=== PATIENT | female | born 1975 | race American Indian/Alaskan Native ===

== ENCOUNTER 2019-04-30 10:06 | Emergency (ER) | payer BC ==
[2019-04-30] MEDS ORDERED: DICYCLOMINE 20 MG TAB PO ONE (13:35)
[2019-04-30] MEDS ORDERED: SODIUM CHLORIDE 0.9% 1000 ML 1,000 ML IV ONE (13:35)
[2019-04-30] MEDS ORDERED: MORPHINE 2 MG/1 ML INJ IV ONE (13:35)
[2019-04-30] MEDS ORDERED: ONDANSETRON 4 MG/2 ML INJ IV ONE (13:35)
[2019-04-30] MEDS ORDERED: MECLIZINE 25 MG TAB PO ONE (14:13)
--- NOTE | 2019-04-30 14:14 | Emergency Department Report ---
ED Abdominal Pain HPI - General Chief Complaint: Dyspnea/Respdistress Stated Complaint: SOB/DIZZY/DIABETIC Time Seen by Provider: 04/30/19 13:29 Source: patient Mode of arrival: Ambulatory Limitations: No Limitations - History of Present Illness Initial Comments: This is a 43-year-old female nontoxic, well nourished in appearance, no acute signs of distress presents to the ED with c/o of dizziness, nausea and vomiting and abdominal pain 1 day. Patient stated that abdominal pain causes some shortness of breathe. Otherwise, denies any SOB. Patient describes vomiting as food content and yellow gastric acid. Patient describes abdominal pain as c ramping and aching with level of 8/10 diffuse. Patient denies chest pain, short of breath, fever, chills, headache, stiff neck, numbness or tingling. Patient denies any diarrhea or constipation. Patient denies any recent travels. Patient denies any allergies. PMH includes DM. MD Complaint: abdominal pain -: days(s) (1) Location: diffuse Radiation: none Migration to: no migration Severity: mild Severity scale (0 -10): 8 Quality: cramping, aching Consistency: constant Improves With: nothing Worsens With: nothing Associated Symptoms: nausea, vomiting. denies: diarrhea, fever, chills, consti pation, dysuria, hematemesis, hematochezia, melena, hematuria, anorexia, syncope - Related Data Home Medications Medication Instructions Recorded Confirmed Last Taken Levothyroxine [Synthroid] 125 mcg PO QAM 08/23/15 08/23/15 08/22/15 metFORMIN [Glucophage] 500 mg PO BID 08/23/15 08/23/15 08/23/15 Previous Rx's Medication Instructions Recorded Last Taken Type DOXYCYCLINE Hyclate [Vibramycin] 100 mg PO Q12HR #28 capsule 08/24/15 Unknown Rx Ketorolac [Toradol] 10 mg PO Q6H PRN #20 tablet 08/24/15 Unknown Rx Ondansetron [Zofran Odt] 4 mg PO QID PRN #20 tab.rapdis 08/24/15 Unknown Rx Meclizine [Antivert] 12.5 mg PO BID PRN #10 tablet 04/30/19 Unknown Rx Ondansetron [Zofran Odt] 4 mg PO Q8HR PRN #10 tab.rapdis 04/30/19 Unknown Rx Allergies Allergy/AdvReac Type Severity Reaction Status Date / Time No Known Allergies Allergy Unverified 05/29/13 16:22 ED Review of Systems ROS: Stated complaint: SOB/DIZZY/DIABETIC Other details as noted in HPI Constitutional: denies: chills, fever Eyes: denies: eye pain, eye discharge, vision change ENT: denies: ear pain, throat pain Respiratory: denies: cough, shortness of breath, wheezing Cardiovascular: denies: chest pain, palpitations Endocrine: no symptoms reported Gastrointestinal: abdominal pain, nausea, vomiting. denies: diarrhea Genitourinary: denies: urgency, dysuria, discharge Musculoskeletal: denies: back pain, joint swelling, arthralgia Skin: denies: rash, lesions Neurological: other (dizziness). denies: headache, weakness, paresthesias Psychiatric: denies: anxiety, depression Hematological/Lymphatic: denies: easy bleeding, easy bruising ED Past Medical Hx - Past Medical History Previous Medical History?: Yes Hx Diabetes: Yes (type II) Additional medical history: HYPERTHYROID. VITILIGO - Surgical History Past Surgical History?: Yes Hx Cholecystectomy: Yes Additional Surgical History: corneal transplant x 2 recent, csection x 2 tubal ligation - Social History Smoking Status: Never Smoker Substance Use Type: None - Medications Home Medications: Home Medications Medication Instructions Recorded Confirmed Last Taken Type Levothyroxine [Synthroid] 125 mcg PO QAM 08/23/15 08/23/15 08/22/15 History metFORMIN [Glucophage] 500 mg PO BID 08/23/15 08/23/15 08/23/15 History DOXYCYCLINE Hyclate [Vibramycin] 100 mg PO Q12HR #28 capsule 08/24/15 Unknown Rx Ketorolac [Toradol] 10 mg PO Q6H PRN #20 tablet 08/24/15 Unknown Rx Ondansetron [Zofran Odt] 4 mg PO QID PRN #20 tab.rapdis 08/24/15 Unknown Rx Meclizine [Antivert] 12.5 mg PO BID PRN #10 tablet 04/30/19 Unknown Rx Ondansetron [Zofran Odt] 4 mg PO Q8HR PRN #10 tab.rapdis 04/30/19 Unknown Rx ED Physical Exam - General Limitations: No Limitations General appearance: alert, in no apparent distress - Head Head exam: Present: atraumatic, normocephalic - Eye Eye exam: Present: normal appearance, PERRL, EOMI - ENT ENT exam: Present: normal exam - Neck Neck exam: Present: normal inspection, full ROM. Absent: tenderness, meningismus, lymphadenopathy - Respiratory Respiratory exam: Present: normal lung sounds bilaterally. Absent: respiratory distress, wheezes, rales, rhonchi, stridor, chest wall tenderness, accessory muscle use, decreased breath sounds, prolonged expiratory - Cardiovascular Cardiovascular Exam: Present: regular rate, normal rhythm, normal heart sounds. Absent: bradycardia, tachycardia, irregular rhythm, systolic murmur, diastolic murmur, rubs, gallop - GI/Abdominal GI/Abdominal exam: Present: soft, tenderness (diffuse), normal bowel sounds. Absent: distended, guarding, rebound, rigid, diminished bowel sounds - Extremities Exam Extremities exam: Present: normal inspection, full ROM - Back Exam Back exam: Present: normal inspection, full ROM. Absent: tenderness, CVA tender ness (R), CVA tenderness (L), muscle spasm, paraspinal tenderness, vertebral tenderness, rash noted - Neurological Exam Neurological exam: Present: alert, oriented X3, normal gait - Expanded Neurological Exam Expanded Patient oriented to: Present: person, place, time Cranial nerves: EOM's Intact: Normal, Facial Sensation: Normal Cerebellar function: Finger to Nose: Normal Upper motor neuron: Pronator Drift: Normal, Sensory Extinction: Normal Motor strength exam: RUE: 5, LUE: 5, RLE: 5, LLE: 5 Best Eye Response ([place]): (4) open spontaneously Best Motor Response ([place]): (6) obeys commands Best Verbal Response ([place]): (5) oriented [place] Total: 15 - Psychiatric Psychiatric exam: Present: normal affect, normal mood - Skin Skin exam: Present: warm, dry, intact, normal color. Absent: rash ED Course Vital Signs 04/30/19 04/30/19 04/30/19 10:11 14:17 14:47 Temperature Pulse Rate 89 Respiratory 16 18 18 Rate Blood Pressure 169/78 [Left] O2 Sat by Pulse 100 Oximetry 04/30/19 15:18 Temperature 97.5 F L Pulse Rate Respiratory Rate Blood Pressure [Left] O2 Sat by Pulse Oximetry - Reevaluation(s) Reevaluation #1: 04/30/19 14:13 Patient is speaking in full sentences with no signs of distress noted. ED Medical Decision Making - Lab Data Result diagrams: 04/30/19 14:05 04/30/19 14:05 - Medical Decision Making This is a 43-year-old female that presents with abdominal pain, n/v, and vertigo. Patient is stable and was examined by me. Negative signs of symptoms of appendicitis. Labs obtained. UA obtained. CT of abdomen obtained and dictated by the radiologist. Patient is notified of the report with no questions noted by the patient. Vital signs are stable prior to discharge. Patient received medical treatment in the ED which patient stated symptoms has resovled and subsided. Was instructed note to operate any machinery due to possible drowsiness and stated someone will drive the patient home. A by mouth challenge has been obtained and patient tolerated well with no nausea vomiting. Patient was notified of strict precatuions of appendictis symptoms and to return to the ED if symptoms occurs as soon as possible. Patient was also instructed to Fo llow-up with a primary care doctor in 3-5 days or if symptoms worsen and continue return to emergency room as soon as possible. At time of discharge, the patient does not seem toxic or ill in appearance. No acute signs of distress noted. Patient agrees to discharge treatment plan of care. No further questions noted by the patient. Critical care attestation.: If time is entered above; I have spent that time in minutes in the direct care of this critically ill patient, excluding procedure time. ED Disposition Clinical Impression: Vertigo Abdominal pain Qualifiers: Abdominal location: generalized Qualified Code(s): R10.84 - Generalized abdominal pain Nausea & vomiting Qualifiers: Vomiting type: unspecified Vomiting Intractability: non-intractable Qualified Code(s): R11.2 - Nausea with vomiting, unspecified Disposition: DC-01 TO HOME OR SELFCARE Is pt being admited?: No Does the pt Need Aspirin: No Condition: Stable Instructions: Vertigo (ED), Acute Abdominal Pain (ED), Acute Nausea and Vomiting (ED) Additional Instructions: Follow-up with a primary care doctor in 3-5 days or if symptoms worsen and continue return to emergency room as soon as possible. Prescriptions: Meclizine [Antivert] 12.5 mg PO BID PRN #10 tablet PRN Reason: Vertigo Ondansetron [Zofran Odt] 4 mg PO Q8HR PRN #10 tab.rapdis PRN Reason: Nausea Referrals: PRIMARY CAREMD [Primary Care Provider] - 3-5 Days MARYCHUY BURRIS MD [Staff Physician] - 3-5 Days [facility] [Outside] - 3-5 Days Forms: Work/School Release Form(ED)
[2019-04-30 14:52] LABS: Alanine Aminotransferase 10 units/L (7-56); Albumin 3.9 g/dL (3.9-5); BUN/Creatinine Ratio 7; Blood Urea Nitrogen 4 mg/dL (7-17); Calcium 8.8 mg/dL (8.4-10.2); Hemolysis Index 3
[2019-04-30 15:15] LABS: Hematocrit 26.9 % (30.3-42.9); Hemoglobin 7.9 gm/dl (10.1-14.3); Mean Corpuscular HGB Conc 30 % (30-34); Mean Corpuscular Volume 60 fl (79-97); Red Blood Count 4.49 M/mm3 (3.65-5.03)
[2019-04-30 15:16] LABS: Platelet Count 408 K/mm3 (140-440); Red Cell Distribution Width 20.3 % (13.2-15.2)
--- NOTE | 2019-04-30 16:30 | Cat Scan Report ---
CT abdomen pelvis w con INDICATION / CLINICAL INFORMATION: MAIN: abd pain N/V OMNIPAQUE 300 100ML NEG PREG TEST. Nausea and vomiting TECHNIQUE: Axial CT imaging of abdomen and pelvis was obtained with IV contrast. Coronal and sagittal reformatte d imaging obtained and reviewed. All CT scans at this location are performed using CT dose reduction for ALARA by means of automated exposure control. COMPARISON: 08/24/2015 FINDINGS: CT abdomen with contrast demonstrates mild hepatic steatosis. The liver is mildly enlarged. Spleen, p ancreas, kidneys, and adrenal glands all appear grossly unremarkable. Prior cholecystectomy. No bilia ry dilatation. CT pelvis with contrast demonstrates normal appearance of the appendix. No pelvic mass, free fluid, o r focal inflammatory change noted. GI tract is normal. Visualized lung bases show no acute pulmonary or pleural disease. No significant acute osseous abnormality. IMPRESSION: 1. No acute finding within the abdomen or pelvis. 2. Mild hepatomegaly due to mild hepatic steatosis. Signer Name: Camilla Bundy MD Signed: 04/30/2019 4:26 PM Workstation Name: [id number]
[2019-04-30 18:14] VITALS: BP 139/84
[2019-04-30 22:01] LABS: Basophils % (Manual) 0 % (0.0-1.8); Total Cells Counted 100
[2019-04-30 22:02] LABS: Hypochromasia 3+; Large Platelets 1+; Ovalocytes 2+
[2019-04-30 22:03] LABS: Platelet Estimate Consistent w Auto
== END 2019-04-30 18:14 | disposition home or self-care (01) ==
LOC: ED 10:06
DX: R10.84 Generalized abdominal pain (principal); R11.2 Nausea with vomiting, unspecified; R42 Dizziness and giddiness
CPT/HCPCS: 36415; 74177; 80053; 82962; 83690; 84703; 85007; 85025; 96361; 96374; 96375; 99284; J2270; J2405; J7030; Q9967

== ENCOUNTER 2020-04-22 20:06 | Emergency (ER) | payer BC ==
[2020-04-22 20:14] VITALS: BP 152/89
[2020-04-22] MEDS ORDERED: methylPREDNISolone Sod Succinate 125 MG/2 ML INJ IV ONE (20:24)
[2020-04-22] MEDS ORDERED: FAMOTIDINE 20 MG/2 ML INJ IV ONE (20:24)
[2020-04-22] MEDS ORDERED: ONDANSETRON 4 MG/2 ML INJ IV ONE (20:24)
[2020-04-22] MEDS ORDERED: diphenhydrAMINE 50 MG/ML VIAL IV ONE (20:24)
--- NOTE | 2020-04-22 20:28 | Emergency Department Report ---
ED Allergic Reaction HPI - General Chief complaint: Allergic Reaction Stated complaint: ALLERGIC REACTION Time Seen by Provider: 04/22/20 20:22 Source: patient Mode of arrival: Ambulatory Limitations: No Limitations - History of Present Illness Initial Comments: 44-year-old female, history of diabetes and thyroid disease, presents to ED with allergic reaction. Patient states she was given an ian candy about an hour ago and began experiencing swelling to her hands and lips. States throat feels itchy. She denies any difficulty breathing. She has not taken any medication prior to ED arrival. No history of allergic reaction in the past. MD Complaint: allergic reaction -: hour(s) (1) Exposure: food (ian candy) Symptoms: lip swelling, nausea. denies: difficulty breathing Severity: moderate Treatment Prior to Arrival: none - Related Data Home Medications Medication Instructions Recorded Confirmed Last Taken Levothyroxine [Synthroid] 125 mcg PO QAM 08/23/15 08/23/15 08/22/15 metFORMIN [Glucophage] 500 mg PO BID 08/23/15 08/23/15 08/23/15 Previous Rx's Medication Instructions Recorded Last Taken Type DOXYCYCLINE Hyclate [Vibramycin] 100 mg PO Q12HR #28 capsule 08/24/15 Unknown Rx Ketorolac [Toradol] 10 mg PO Q6H PRN #20 tablet 08/24/15 Unknown Rx Ondansetron [Zofran Odt] 4 mg PO QID PRN #20 tab.rapdis 08/24/15 Unknown Rx Meclizine [Antivert] 12.5 mg PO BID PRN #10 tablet 04/30/19 Unknown Rx Ondansetron [Zofran Odt] 4 mg PO Q8HR PRN #10 tab.rapdis 04/30/19 Unknown Rx predniSONE [Deltasone] 50 mg PO QDAY #5 tab 04/22/20 Unknown Rx Allergies Allergy/AdvReac Type Severity Reaction Status Date / Time No Known Allergies Allergy Unverified 05/29/13 16:22 ED Review of Systems ROS: Stated complaint: ALLERGIC REACTION Other details as noted in HPI Comment: All other systems reviewed and negative Respiratory: denies: shortness of breath Gastrointestinal: nausea Skin: denies: rash ED Past Medical Hx - Past Medical History Previous Medical History?: Yes Hx Diabetes: Yes (type II) Additional medical history: HYPoTHYROID. VITILIGO - Surgical History Past Surgical History?: Yes Hx Cholecystectomy: Yes Additional Surgical History: corneal transplant x 2 recent, csection x 2 tubal ligation - Social History Smoking Status: Never Smoker Substance Use Type: None - Medications Home Medications: Home Medications Medication Instructions Recorded Confirmed Last Taken Type Levothyroxine [Synthroid] 125 mcg PO QAM 08/23/15 08/23/15 08/22/15 History metFORMIN [Glucophage] 500 mg PO BID 08/23/15 08/23/15 08/23/15 History DOXYCYCLINE Hyclate [Vibramycin] 100 mg PO Q12HR #28 capsule 08/24/15 Unknown Rx Ketorolac [Toradol] 10 mg PO Q6H PRN #20 tablet 08/24/15 Unknown Rx Ondansetron [Zofran Odt] 4 mg PO QID PRN #20 tab.rapdis 08/24/15 Unknown Rx Meclizine [Antivert] 12.5 mg PO BID PRN #10 tablet 04/30/19 Unknown Rx Ondansetron [Zofran Odt] 4 mg PO Q8HR PRN #10 tab.rapdis 04/30/19 Unknown Rx predniSONE [Deltasone] 50 mg PO QDAY #5 tab 04/22/20 Unknown Rx ED Physical Exam - General Limitations: No Limitations General appearance: alert, in no apparent distress, obese - Head Head exam: Present: atraumatic, normocephalic - Eye Eye exam: Present: normal appearance, EOMI - ENT ENT exam: Present: normal orophraynx (Uvula midline, no edema; tongue is normal in size), other (slight swelling to upper lip) - Neck Neck exam: Present: normal inspection - Respiratory Respiratory exam: Present: normal lung sounds bilaterally. Absent: respiratory distress, wheezes, stridor - Cardiovascular Cardiovascular Exam: Present: normal rhythm, tachycardia - GI/Abdominal GI/Abdominal exam: Present: soft. Absent: distended, tenderness - Extremities Exam Extremities exam: Present: normal inspection - Neurological Exam Neurological exam: Present: alert, oriented X3 - Psychiatric Psychiatric exam: Present: normal affect, normal mood - Skin Skin exam: Present: warm, dry, intact, normal color. Absent: rash ED Course Vital Signs 04/22/20 04/22/20 20:11 22:35 Temperature 98.3 F Pulse Rate 119 H 89 Respiratory 18 17 Rate Blood Pressure 152/89 O2 Sat by Pulse 97 100 Oximetry - Reevaluation(s) Reevaluation #1: 04/22/20 22:20 Patient feeling much better at this time. Swelling has resolved. Patient is having no respiratory distress. Will discharge at this time. ED Medical Decision Making - Medical Decision Making 44-year-old female presents to ED for allergic reaction after eating a piece of ian candy. Patient denies any previous history of allergic reactions. Patient arrives with some swelling to the lips and hands, no airway compromise. She was given Benadryl, Pepcid, Solu-Medrol, and Zofran. Patient has been observed in the ED, symptoms have resolved, and she is now stable for discharge home. Prescriptions will be given. Outpatient follow-up advised, return precautions given. - Differential Diagnosis Allergic reaction Critical care attestation.: If time is entered above; I have spent that time in minutes in the direct care of this critically ill patient, excluding procedure time. ED Disposition Clinical Impression: Allergic reaction Disposition: - TO HOME OR SELFCARE Is pt being admited?: No Condition: Stable Instructions: Allergies, Adult Prescriptions: predniSONE [Deltasone] 50 mg PO QDAY #5 tab Referrals: PRIMARY CARE, [Primary Care Provider] - 3-5 Days [facility] [Provider Group] - 3-5 Days Time of Disposition: 22:21
== END 2020-04-22 22:35 | disposition home or self-care (01) ==
LOC: ED 20:06
DX: T78.40XA Allergy, unspecified, initial encounter (principal); E11.9 Type 2 diabetes mellitus without complications; Z90.49 Acquired absence of other specified parts of digestive tract; Z98.890 Other specified postprocedural states; Z79.899 Other long term (current) drug therapy; X58.XXXA Exposure to other specified factors, initial encounter
CPT/HCPCS: 96374; 96375; 99282; J1200; J2405; J2930

== ENCOUNTER 2020-12-21 17:43 | Emergency (ER) | payer BC ==
[2020-12-21 18:40] VITALS: BP 162/88
[2020-12-21 19:06] LABS: Bacteria,Urine 1+ /HPF (Negative); Bilirubin,Urine NEG (Negative); Blood,Urine SM (Negative); Color,Urine Yellow (Yellow); Mucus,Urine 1+ /HPF; Protein,Urine <15 mg/dL mg/dL (Negative); Urobilinogen,Urine < 2.0 mg/dL (<2.0)
[2020-12-21 19:07] LABS: HCG Qualitative,Urine Negative (Negative)
--- NOTE | 2020-12-21 19:23 | Emergency Department Report ---
ED Abdominal Pain HPI - General Chief Complaint: Abdominal Pain Stated Complaint: POSS RIB FRACTURE Time Seen by Provider: 12/21/20 19:19 Source: patient Mode of arrival: Ambulatory Limitations: No Limitations - History of Present Illness Initial Comments: Patient is a 45-year-old female presents emergency room complaints of right- sided abdominal pain that radiates to her back that began 3 days ago. The patient states that she had a cholecystectomy in 1999. She states that she has not had any issues since then. She denies any nausea, vomiting, diarrhea. She states that she had a bowel movement this morning and reports it was normal. She denies any dysuria. She denies any shortness of breath or chest pain. Past medical history of hypothyroidism and anemia. Allergy to ian. Severity scale (0 -10): 8 - Related Data Home Medications Medication Instructions Recorded Confirmed Last Taken Levothyroxine [Synthroid] 125 mcg PO QAM 08/23/15 08/23/15 08/22/15 metFORMIN [Glucophage] 500 mg PO BID 08/23/15 08/23/15 08/23/15 Previous Rx's Medication Instructions Recorded Last Taken Type DOXYCYCLINE Hyclate [Vibramycin] 100 mg PO Q12HR #28 capsule 08/24/15 Unknown Rx Ketorolac [Toradol] 10 mg PO Q6H PRN #20 tablet 08/24/15 Unknown Rx Ondansetron [Zofran Odt] 4 mg PO QID PRN #20 tab.rapdis 08/24/15 Unknown Rx Meclizine [Antivert] 12.5 mg PO BID PRN #10 tablet 04/30/19 Unknown Rx predniSONE [Deltasone] 50 mg PO QDAY #5 tab 04/22/20 Unknown Rx Ondansetron [Zofran ODT TAB] 4 mg PO Q8HR PRN #10 tab.rapdis 12/21/20 Unknown Rx cephALEXin [Keflex] 500 mg PO BID 7 Days #14 capsule 12/21/20 Unknown Rx traMADoL [Ultram 50 MG tab] 50 mg PO Q6HR PRN #12 tablet 12/21/20 Unknown Rx Allergies Allergy/AdvReac Type Severity Reaction Status Date / Time ian Allergy Swelling Verified 12/21/20 18:31 ED Review of Systems ROS: Stated complaint: POSS RIB FRACTURE Other details as noted in HPI Comment: All other systems reviewed and negative ED Past Medical Hx - Past Medical History Hx Diabetes: Yes (type II) Additional medical history: HYPoTHYROID/ LOW IRON. VITILIGO - Surgical History Hx Cholecystectomy: Yes Additional Surgical History: corneal transplant x 2 recent, csection x 2 tubal ligation - Social History Smoking Status: Never Smoker Substance Use Type: None - Medications Home Medications: Home Medications Medication Instructions Recorded Confirmed Last Taken Type Levothyroxine [Synthroid] 125 mcg PO QAM 08/23/15 08/23/15 08/22/15 History metFORMIN [Glucophage] 500 mg PO BID 08/23/15 08/23/15 08/23/15 History DOXYCYCLINE Hyclate [Vibramycin] 100 mg PO Q12HR #28 capsule 08/24/15 Unknown Rx Ketorolac [Toradol] 10 mg PO Q6H PRN #20 tablet 08/24/15 Unknown Rx Ondansetron [Zofran Odt] 4 mg PO QID PRN #20 tab.rapdis 08/24/15 Unknown Rx Meclizine [Antivert] 12.5 mg PO BID PRN #10 tablet 04/30/19 Unknown Rx predniSONE [Deltasone] 50 mg PO QDAY #5 tab 04/22/20 Unknown Rx Ondansetron [Zofran ODT TAB] 4 mg PO Q8HR PRN #10 tab.rapdis 12/21/20 Unknown Rx cephALEXin [Keflex] 500 mg PO BID 7 Days #14 capsule 12/21/20 Unknown Rx traMADoL [Ultram 50 MG tab] 50 mg PO Q6HR PRN #12 tablet 12/21/20 Unknown Rx ED Physical Exam - General Limitations: No Limitations General appearance: alert, in no apparent distress - Head Head exam: Present: atraumatic, normocephalic - Eye Eye exam: Present: normal appearance - ENT ENT exam: Present: mucous membranes moist - Respiratory Respiratory exam: Present: normal lung sounds bilaterally. Absent: respiratory distress, wheezes, rales, rhonchi, stridor, chest wall tenderness, accessory muscle use, decreased breath sounds, prolonged expiratory - Cardiovascular Cardiovascular Exam: Present: regular rate, normal rhythm, normal heart sounds. Absent: systolic murmur, diastolic murmur, rubs, gallop - GI/Abdominal GI/Abdominal exam: Present: soft, tenderness (generalized right sided abd ttp), normal bowel sounds, other (protuberant abdomen). Absent: guarding, rebound, rigid - Neurological Exam Neurological exam: Present: alert, oriented X3 - Psychiatric Psychiatric exam: Present: normal affect, normal mood - Skin Skin exam: Present: warm, dry, intact ED Course Vital Signs 12/21/20 12/21/20 18:37 18:40 Temperature 98.4 F 98.4 F Pulse Rate 82 82 Respiratory 20 20 Rate Blood Pressure 162/88 Blood Pressure 162/88 [Right] O2 Sat by Pulse 100 100 Oximetry ED Medical Decision Making - Lab Data Result diagrams: 12/21/20 18:56 12/21/20 18:56 Lab Results 12/21/20 12/21/20 12/21/20 Range/Units 18:56 18:56 Unknown WBC 9.9 (4.5-11.0) K/mm3 RBC 4.38 (3.65-5.03) M/mm3 Hgb 8.7 L (10.1-14.3) gm/dl Hct 28.6 L (30.3-42.9) % MCV 65 L (79-97) fl MCH 20 L (28-32) pg MCHC 31 (30-34) % RDW 19.6 H (13.2-15.2) % Plt Count 535 H (140-440) K/mm3 Lymph % (Auto) 38.8 H (13.4-35.0) % [place] % (Auto) 4.6 (0.0-7.3) % Eos % (Auto) 3.2 (0.0-4.3) % Baso % (Auto) 0.5 (0.0-1.8) % Lymph # (Auto) 3.8 (1.2-5.4) K/mm3 [place] # (Auto) 0.5 (0.0-0.8) K/mm3 Eos # (Auto) 0.3 (0.0-0.4) K/mm3 Baso # (Auto) 0.1 (0.0-0.1) K/mm3 Seg Neutrophils % 52.9 (40.0-70.0) % Seg Neutrophils # 5.2 (1.8-7.7) K/mm3 Sodium 135 L (137-145) mmol/L Potassium 4.1 (3.6-5.0) mmol/L Chloride 99.3 (98-107) mmol/L Carbon Dioxide 27 (22-30) mmol/L Anion Gap 13 mmol/L BUN 7 (7-17) mg/dL Creatinine 0.6 (0.6-1.2) mg/dL Estimated GFR > 60 ml/min BUN/Creatinine Ratio 12 % Glucose 143 H (65-100) mg/dL Calcium 9.0 (8.4-10.2) mg/dL Total Bilirubin < 0.20 (0.1-1.2) mg/dL AST 29 (5-40) units/L ALT 19 (7-56) units/L Alkaline Phosphatase 96 (35-129) units/L Total Protein 8.3 H (6.3-8.2) g/dL Albumin 4.0 (3.9-5) g/dL Albumin/Globulin Ratio 0.9 % Lipase 62 H (13-60) units/L Urine Color Yellow (Yellow) Urine Turbidity Slightly-cloudy (Clear) Urine pH 6.0 (5.0-7.0) Ur Specific [place] 1.019 (1.003-1.030) Urine Protein <15 mg/dl (Negative) mg/dL Urine Glucose (UA) Neg (Negative) mg/dL Urine Ketones Neg (Negative) mg/dL Urine Blood Sm (Negative) Urine Nitrite Neg (Negative) Urine Bilirubin Neg (Negative) Urine Urobilinogen < 2.0 (<2.0) mg/dL Ur Leukocyte Esterase Tr (Negative) Urine WBC (Auto) 4.0 (0.0-6.0) /HPF Urine RBC (Auto) 2.0 (0.0-6.0) /HPF U Epithel Cells (Auto) 35.0 H (0-13.0) /HPF Urine Bacteria (Auto) 1+ (Negative) /HPF Urine Mucus 1+ /HPF Urine HCG, Qual Negative (Negative) - Radiology Data Radiology results: report reviewed Ordering Physician: JANET ESCUDERO Date of Service: 12/21/20 Procedure(s): CT abdomen pelvis w con Accession Number(s): [id number] cc: JANET ESCUDERO CT ABDOMEN AND PELVIS WITH CONTRAST INDICATION / CLINICAL INFORMATION: right sided abd pain radiates to back. TECHNIQUE: Axial CT images were obtained through the abdomen and pelvis after 100 cc Omnipaque [address] scans at this location are performed using CT dose reduction for ALARA by means of automated exposure control. COMPARISON: CT abdomen and pelvis dated 04/30/2019 FINDINGS: LOWER CHEST: Subsegmental atelectasis in the right middle lobe and lingula. LIVER: Hepatomegaly and steatosis. No focal liver lesion is seen. GALLBLADDER: Cholecystectomy. BILE DUCTS: No significant abnormality. PANCREAS: No significant abnormality. SPLEEN: No significant abnormality. ADRENALS: No significant abnormality. RIGHT KIDNEY / URETER: No significant abnormality. LEFT KIDNEY / URETER: No significant abnormality. STOMACH / SMALL BOWEL: No significant abnormality. COLON: No significant abnormality. APPENDIX: No significant abnormality. PERITONEUM: No free fluid. No free air. No fluid collection. LYMPH NODES: No significant adenopathy. AORTA / ARTERIES: No significant abnormality. IVC / VEINS: No significant abnormality. URINARY BLADDER: No significant abnormality. REPRODUCTIVE ORGANS: No significant abnormality. ADDITIONAL FINDINGS: Fat-containing umbilical hernia. SKELETAL SYSTEM: No significant abnormality. IMPRESSION: 1. No acute abnormality identified. 2. Hepatomegaly and steatosis. Signer Name: Erika Grande MD Signed: 12/21/2020 9:10 PM Workstation Name: [id number] Transcribed By: DB Dictated By: ERIKA GRANDE MD Electronically Authenticated By: ERIKA GRANDE MD Signed Date/Time: 12/21/202109 DD/ 04 TD/TT: - Medical Decision Making Patient is a 45-year-old female presents emergency room complaints of right- sided abdominal pain that radiates to her back that began 3 days ago. The patient states that she had a cholecystectomy in 1999. She states that she has not had any issues since then. She denies any nausea, vomiting, diarrhea. She states that she had a bowel movement this morning and reports it was normal. She denies any dysuria. She denies any shortness of breath or chest pain. Past medical history of hypothyroidism and anemia. Allergy to ian. Vitals are stable. On exam:generalized right sided abd ttp, no guarding, no rebound, no rigidity, no masses, no peritoneal signs. Labs are stable anemia. UA shows 1+ bacteria, there are many epithelial cells, given that patient is having abdominal pain, will cover for UTI, but could be due to contamination. CT abdomen pelvis with IV contrast: 1. No acute abnormality identified. 2. Hepatomegaly and steatosis. Discussed all results with patient answer questions. Discussed the importance of outpatient GI follow-up. Patient given prescription for medications. Advised patient Please take medication as prescribed. Increase your water intake. Follow-up with a GI doctor. Follow-up with your primary care doctor. Return to emergency room for any new or worsening symptoms. Critical care attestation.: If time is entered above; I have spent that time in minutes in the direct care of this critically ill patient, excluding procedure time. ED Disposition Clinical Impression: Hepatomegaly Abdominal pain Qualifiers: Abdominal location: right upper quadrant Qualified Code(s): R10.11 - Right upper quadrant pain UTI (urinary tract infection) Qualifiers: Urinary tract infection type: acute cystitis Hematuria presence: without hematuria Qualified Code(s): N30.00 - Acute cystitis without hematuria Disposition: HOME / SELF CARE / HOMELESS Is pt being admited?: No Does the pt Need Aspirin: No Condition: Stable Instructions: Urinary Tract Infection, Adult, [id number], Abdominal Pain, Adult, [id number], Abdominal Pain (ED) Additional Instructions: Please take medication as prescribed. Increase your water intake. Follow-up with a GI doctor. Follow-up with your primary care doctor. Return to emergency room for any new or worsening symptoms. Prescriptions: cephALEXin [Keflex] 500 mg PO BID 7 Days #14 capsule traMADoL [Ultram 50 MG tab] 50 mg PO Q6HR PRN #12 tablet PRN Reason: Pain , Severe (7-10) Ondansetron [Zofran ODT TAB] 4 mg PO Q8HR PRN #10 tab.rapdis PRN Reason: Nausea Referrals: PRIMARY CARE, [Primary Care Provider] - 2-3 Days [facility] [Provider Group] - 2-3 Days Time of Disposition: 21:55 Print Language: URUGUAYAN
[2020-12-21 19:34] LABS: Basophils # (Auto) 0.1 K/mm3 (0.0-0.1); Basophils % (Auto) 0.5 % (0.0-1.8); Eosinophils # (Auto) 0.3 K/mm3 (0.0-0.4); Eosinophils % (Auto) 3.2 % (0.0-4.3); Hematocrit 28.6 % (30.3-42.9); Hemoglobin 8.7 gm/dl (10.1-14.3); Lymphocytes # (Auto) 3.8 K/mm3 (1.2-5.4); Lymphocytes % (Auto) 38.8 % (13.4-35.0); Mean Corpuscular HGB Conc 31 % (30-34); Monocytes # (Auto) 0.5 K/mm3 (0.0-0.8); Monocytes % (Auto) 4.6 % (0.0-7.3); Platelet Count 535 K/mm3 (140-440); Red Blood Count 4.38 M/mm3 (3.65-5.03); Red Cell Distribution Width 19.6 % (13.2-15.2)
[2020-12-21 19:37] LABS: Mean Corpuscular Volume 65 fl (79-97)
[2020-12-21 19:46] LABS: Alanine Aminotransferase 19 units/L (7-56); Blood Urea Nitrogen 7 mg/dL (7-17); Hemolysis Index 8
[2020-12-21 19:48] LABS: BUN/Creatinine Ratio 12
--- NOTE | 2020-12-21 21:14 | Cat Scan Report ---
CT ABDOMEN AND PELVIS WITH CONTRAST INDICATION / CLINICAL INFORMATION: right sided abd pain radiates to back. TECHNIQUE: Axial CT images were obtained through the abdomen and pelvis after 100 cc Omnipaque [address] scans at this location are performed using CT dose reduction for ALARA by means of automated exposure control. COMPARISON: CT abdomen and pelvis dated 04/30/2019 FINDINGS: LOWER CHEST: Subsegmental atelectasis in the right middle lobe and lingula. LIVER: Hepatomegaly and steatosis. No focal liver lesion is seen. GALLBLADDER: Cholecystectomy. BILE DUCTS: No significant abnormality. PANCREAS: No significant abnormality. SPLEEN: No significant abnormality. ADRENALS: No significant abnormality. RIGHT KIDNEY / URETER: No significant abnormality. LEFT KIDNEY / URETER: No significant abnormality. STOMACH / SMALL BOWEL: No significant abnormality. COLON: No significant abnormality. APPENDIX: No significant abnormality. PERITONEUM: No free fluid. No free air. No fluid collection. LYMPH NODES: No significant adenopathy. AORTA / ARTERIES: No significant abnormality. IVC / VEINS: No significant abnormality. URINARY BLADDER: No significant abnormality. REPRODUCTIVE ORGANS: No significant abnormality. ADDITIONAL FINDINGS: Fat-containing umbilical hernia. SKELETAL SYSTEM: No significant abnormality. IMPRESSION: 1. No acute abnormality identified. 2. Hepatomegaly and steatosis. Signer Name: Phu Grande MD Signed: 12/21/2020 9:10 PM Workstation Name: [id number]
== END 2020-12-21 22:05 | disposition home or self-care (01) ==
LOC: ED 17:43
DX: R16.0 Hepatomegaly, not elsewhere classified (principal); R10.9 Unspecified abdominal pain; N39.0 Urinary tract infection, site not specified; Z91.018 Allergy to other foods; E11.8 Type 2 diabetes mellitus with unspecified complications
CPT/HCPCS: 36415; 74177; 80053; 81001; 81025; 83690; 85025; 87086; 99284; Q9967

== ENCOUNTER 2021-03-18 13:41 | Emergency (ER) | payer BC ==
[2021-03-18 14:22] VITALS: BP 141/86
[2021-03-18] MEDS ORDERED: diphenhydrAMINE 50 MG/ML VIAL IV ONE (14:31)
[2021-03-18] MEDS ORDERED: FAMOTIDINE 20 MG/2 ML INJ IV ONE (14:31)
[2021-03-18] MEDS ORDERED: DEXAMETHASONE 4 MG TAB PO ONE (14:31)
[2021-03-18] MEDS ORDERED: SODIUM CHLORIDE 0.9% 500 ML 500 ML IV ONE (14:31)
--- NOTE | 2021-03-18 15:49 | Emergency Department Report ---
HPI - General Chief Complaint: Allergic Reaction Time Seen by Provider: 03/18/21 14:27 - HPI HPI: The patient was evaluated in the emergency department for symptoms described in the history of present illness. He/she was evaluated in the context of the gl obal COVID-19 pandemic, which necessitated consideration that the patient might be at risk for infection with the virus that causes COVID-19. Institutional protocols and algorithms that pertain to the evaluation of patients at risk for COVID-19 are in a state of rapid change based on information released by regulatory bodies including the CDC and federal and state organizations. These policies and algorithms were followed during the patient's care in the emergency department. Please note that these policies, procedures and recommendations changed on a rapid basis. 45-year-old -[place] female presents to the emergency room complaining of hives for the last 5 days. Patient states has been taking Benadryl but the hives continue and it feels like they are not responding to the Benadryl. Patient states she only thing she can recall that she has started some new detergent. She denies any shortness of breath she states she had lip swelling the other day but that has improved. She states that she just itches all over. ED Past Medical Hx - Past Medical History Hx Diabetes: Yes (type II) Additional medical history: HYPoTHYROID/ LOW IRON. VITILIGO - Surgical History Hx Cholecystectomy: Yes Additional Surgical History: corneal transplant x 2 recent, csection x 2 tubal ligation - Social History Smoking Status: Never Smoker Substance Use Type: None - Medications Home Medications: Home Medications Medication Instructions Recorded Confirmed Last Taken Type Levothyroxine [Synthroid] 125 mcg PO QAM 08/23/15 08/23/15 08/22/15 History metFORMIN [Glucophage] 500 mg PO BID 08/23/15 08/23/15 08/23/15 History DOXYCYCLINE Hyclate [Vibramycin] 100 mg PO Q12HR #28 capsule 08/24/15 Unknown Rx Ketorolac [Toradol] 10 mg PO Q6H PRN #20 tablet 08/24/15 Unknown Rx Ondansetron [Zofran Odt] 4 mg PO QID PRN #20 tab.rapdis 08/24/15 Unknown Rx Meclizine [Antivert] 12.5 mg PO BID PRN #10 tablet 04/30/19 Unknown Rx predniSONE [Deltasone] 50 mg PO QDAY #5 tab 04/22/20 Unknown Rx Ondansetron [Zofran ODT TAB] 4 mg PO Q8HR PRN #10 tab.rapdis 12/21/20 Unknown Rx cephALEXin [Keflex] 500 mg PO BID 7 Days #14 capsule 12/21/20 Unknown Rx traMADoL [Ultram 50 MG tab] 50 mg PO Q6HR PRN #12 tablet 12/21/20 Unknown Rx Cetirizine HCl 10 mg PO QDAY #30 tablet 03/18/21 Unknown Rx EPINEPHrine [Epipen 2-Martin] 0.3 mg IM ONCE PRN #0.3 ml 03/18/21 Unknown Rx predniSONE [Deltasone] 20 mg PO QDAY 5 Days #5 tab 03/18/21 Unknown Rx ED Review of Systems ROS: Stated complaint: ALLERGIC REACTION Other details as noted in HPI Comment: All other systems reviewed and negative Physical Exam - Physical Exam Vital Signs: Vital Signs 03/18/21 14:21 Temperature 98.0 F Pulse Rate 88 Respiratory 16 Rate Blood Pressure 141/86 [Right] O2 Sat by Pulse 100 Oximetry Physical Exam: General: Awake, appropriately interactive, no acute distress. Neck: Supple. Full range of motion intact. Cardiovascular: Normal peripheral perfusion. Pulmonary: No respiratory distress. Patient is speaking normally without use of accessory muscles. Skin: Multiple urticaria on chest back lower legs upper extremities neck Neurological: No facial asymmetry. Speech is clear. Follows commands. Patient is alert and oriented. Musculoskeletal: Full range of motion, no crepitus. No tenderness to palpate nonerythematous no edema test appreciated. Able to bear weight and ambulate without difficulty. Distal neurovascular and motor/sensory function is intact. Psych: Cooperative. Appropriate mood and affect. ED Course Vital Signs 03/18/21 14:21 Temperature 98.0 F Pulse Rate 88 Respiratory 16 Rate Blood Pressure 141/86 [Right] O2 Sat by Pulse 100 Oximetry ED Medical Decision Making - Medical Decision Making 45-year-old -[place] female presents to the emergency room complaining of hives for the last 5 days. Patient states has been taking Benadryl but the hives continue and it feels like they are not responding to the Benadryl. Patient states she only thing she can recall that she has started some new detergent. She denies any shortness of breath she states she had lip swelling the other day but that has improved. She states that she just itches all over. Patient given a INT, normal saline, Benadryl 25 mg IV dexamethasone 4 mg IV Pepcid 10 mg IV. Patient be discharged home with EpiPen steroid even though she is diabetic patient needs to check her blood sugars and do medication adjust ment. Critical care attestation.: If time is entered above; I have spent that time in minutes in the direct care of this critically ill patient, excluding procedure time. ED Disposition Clinical Impression: Allergic reaction, Urticaria Disposition: HOME / SELF CARE / HOMELESS Is pt being admited?: No Does the pt Need Aspirin: No Condition: Stable Instructions: How to Use an Auto-Injector Pen, Hives, [id number] Additional Instructions: Please take medications as prescribed. Be aware that I will discharge you home on steroids and this may cause your blood sugar to elevate. I would like for you to adjust your medicine and follow your blood sugars closely. I would like for you to increase your water intake while taking medications. I would like for you to discontinue the new detergent. Is very important you follow-up with your primary care provider. I am also referring you to an bodywork therapist as well. Prescriptions: Cetirizine HCl 10 mg PO QDAY #30 tablet predniSONE [Deltasone] 20 mg PO QDAY 5 Days #5 tab EPINEPHrine [Epipen 2-Martin] 0.3 mg IM ONCE PRN #0.3 ml PRN Reason: Anaphylaxis Referrals: [facility] [Provider Group] - 3-5 Days Forms: Work/School Release Form(ED) Time of Disposition: 15:50
== END 2021-03-18 16:09 | disposition home or self-care (01) ==
LOC: ED 13:41
DX: L50.0 Allergic urticaria (principal); E11.9 Type 2 diabetes mellitus without complications
CPT/HCPCS: 96374; 96375; 99282; J1200; J3490; J7040; J8540

== ENCOUNTER 2021-04-04 20:28 | Emergency (ER) | payer BC ==
[2021-04-04 20:35] VITALS: BP 158/78
[2021-04-04] MEDS ORDERED: FAMOTIDINE 20 MG TAB PO ONE (22:26)
[2021-04-04] MEDS ORDERED: dexAMETHasone 4 MG/ML VIAL IM ONE (22:26)
[2021-04-04] MEDS ORDERED: diphenhydrAMINE 50 MG/ML VIAL IM ONE (22:27)
--- NOTE | 2021-04-05 00:54 | Emergency Department Report ---
ED Allergic Reaction HPI - General Chief complaint: Allergic Reaction Stated complaint: ALLERGIC REACTION Time Seen by Provider: 04/04/21 22:15 Source: patient Mode of arrival: Ambulatory Limitations: No Limitations - History of Present Illness MD Complaint: allergic reaction -: Gradual, week(s) Exposure: unknown Symptoms: rash, itching Severity: mild Treatment Prior to Arrival: none Previous Allergy History: none - Related Data Home Medications Medication Instructions Recorded Confirmed Last Taken Levothyroxine [Synthroid] 125 mcg PO QAM 08/23/15 08/23/15 08/22/15 metFORMIN [Glucophage] 500 mg PO BID 08/23/15 08/23/15 08/23/15 Previous Rx's Medication Instructions Recorded Last Taken Type DOXYCYCLINE Hyclate [Vibramycin] 100 mg PO Q12HR #28 capsule 08/24/15 Unknown Rx Ketorolac [Toradol] 10 mg PO Q6H PRN #20 tablet 08/24/15 Unknown Rx Ondansetron [Zofran Odt] 4 mg PO QID PRN #20 tab.rapdis 08/24/15 Unknown Rx Meclizine [Antivert] 12.5 mg PO BID PRN #10 tablet 04/30/19 Unknown Rx predniSONE [Deltasone] 50 mg PO QDAY #5 tab 04/22/20 Unknown Rx Ondansetron [Zofran ODT TAB] 4 mg PO Q8HR PRN #10 tab.rapdis 12/21/20 Unknown Rx cephALEXin [Keflex] 500 mg PO BID 7 Days #14 capsule 12/21/20 Unknown Rx traMADoL [Ultram 50 MG tab] 50 mg PO Q6HR PRN #12 tablet 12/21/20 Unknown Rx Cetirizine HCl 10 mg PO QDAY #30 tablet 03/18/21 Unknown Rx EPINEPHrine [Epipen 2-Martin] 0.3 mg IM ONCE PRN #0.3 ml 03/18/21 Unknown Rx predniSONE [Deltasone] 20 mg PO QDAY 5 Days #5 tab 03/18/21 Unknown Rx Famotidine [Pepcid] 40 mg PO DAILY #14 tablet 04/05/21 Unknown Rx hydrOXYzine HCL [Atarax] 25 mg PO Q6HR PRN #20 tablet 04/05/21 Unknown Rx predniSONE [Deltasone] 50 mg PO QDAY #5 tab 04/05/21 Unknown Rx Allergies Allergy/AdvReac Type Severity Reaction Status Date / Time ian Allergy Swelling Verified 12/21/20 18:31 ED Review of Systems ROS: Stated complaint: ALLERGIC REACTION Other details as noted in HPI Comment: All other systems reviewed and negative ED Past Medical Hx - Past Medical History Previous Medical History?: Yes Hx Diabetes: Yes (type II) Additional medical history: HYPoTHYROID/ LOW IRON. VITILIGO - Surgical History Past Surgical History?: Yes Hx Cholecystectomy: Yes Additional Surgical History: corneal transplant x 2 recent, csection x 2 tubal ligation - Social History Smoking Status: Never Smoker Substance Use Type: None - Medications Home Medications: Home Medications Medication Instructions Recorded Confirmed Last Taken Type Levothyroxine [Synthroid] 125 mcg PO QAM 08/23/15 08/23/15 08/22/15 History metFORMIN [Glucophage] 500 mg PO BID 08/23/15 08/23/15 08/23/15 History DOXYCYCLINE Hyclate [Vibramycin] 100 mg PO Q12HR #28 capsule 08/24/15 Unknown Rx Ketorolac [Toradol] 10 mg PO Q6H PRN #20 tablet 08/24/15 Unknown Rx Ondansetron [Zofran Odt] 4 mg PO QID PRN #20 tab.rapdis 08/24/15 Unknown Rx Meclizine [Antivert] 12.5 mg PO BID PRN #10 tablet 04/30/19 Unknown Rx predniSONE [Deltasone] 50 mg PO QDAY #5 tab 04/22/20 Unknown Rx Ondansetron [Zofran ODT TAB] 4 mg PO Q8HR PRN #10 tab.rapdis 12/21/20 Unknown Rx cephALEXin [Keflex] 500 mg PO BID 7 Days #14 capsule 12/21/20 Unknown Rx traMADoL [Ultram 50 MG tab] 50 mg PO Q6HR PRN #12 tablet 12/21/20 Unknown Rx Cetirizine HCl 10 mg PO QDAY #30 tablet 03/18/21 Unknown Rx EPINEPHrine [Epipen 2-Martin] 0.3 mg IM ONCE PRN #0.3 ml 03/18/21 Unknown Rx predniSONE [Deltasone] 20 mg PO QDAY 5 Days #5 tab 03/18/21 Unknown Rx Famotidine [Pepcid] 40 mg PO DAILY #14 tablet 04/05/21 Unknown Rx hydrOXYzine HCL [Atarax] 25 mg PO Q6HR PRN #20 tablet 04/05/21 Unknown Rx predniSONE [Deltasone] 50 mg PO QDAY #5 tab 04/05/21 Unknown Rx ED Physical Exam - General Limitations: No Limitations General appearance: alert, in no apparent distress - Head Head exam: Present: atraumatic, normocephalic - Eye Eye exam: Present: normal appearance, PERRL, EOMI Pupils: Present: normal accommodation - ENT ENT exam: Present: normal exam, normal orophraynx, mucous membranes moist, TM's normal bilaterally - Neck Neck exam: Present: normal inspection, full ROM. Absent: tenderness, meningismus - Respiratory Respiratory exam: Present: normal lung sounds bilaterally. Absent: respiratory distress, rales, rhonchi, accessory muscle use, decreased breath sounds - Cardiovascular Cardiovascular Exam: Present: regular rate, normal rhythm, normal heart sounds. Absent: bradycardia, tachycardia, systolic murmur, diastolic murmur, rubs, gallop - GI/Abdominal GI/Abdominal exam: Present: soft, normal bowel sounds - Extremities Exam Extremities exam: Present: normal inspection, full ROM, normal capillary refill - Back Exam Back exam: Present: normal inspection. Absent: CVA tenderness (R), CVA tenderness (L) - Neurological Exam Neurological exam: Present: alert, oriented X3, CN II-XII intact - Psychiatric Psychiatric exam: Present: normal affect, normal mood. Absent: flat affect - Skin Skin exam: Present: warm, dry, erythema, urticaria. Absent: intact, normal color, rash, pallor, abrasion ED Course Vital Signs 04/04/21 20:33 Temperature 98.0 F Pulse Rate 95 H Respiratory 18 Rate Blood Pressure 158/78 O2 Sat by Pulse 100 Oximetry Critical care attestation.: If time is entered above; I have spent that time in minutes in the direct care of this critically ill patient, excluding procedure time. ED Disposition Clinical Impression: Allergic reaction Disposition: 01 HOME / SELF CARE / HOMELESS Is pt being admited?: No Does the pt Need Aspirin: No Condition: Stable Instructions: Hives, Cough, Adult, [id number], How to Use an Auto-Injector Pen, Cough, Adult Prescriptions: hydrOXYzine HCL [Atarax] 25 mg PO Q6HR PRN #20 tablet PRN Reason: Itching predniSONE [Deltasone] 50 mg PO QDAY #5 tab Famotidine [Pepcid] 40 mg PO DAILY #14 tablet Referrals: KATHERINE WEBER MD [Primary Care Provider] - 3-5 Days
== END 2021-04-05 01:03 | disposition home or self-care (01) ==
LOC: ED 20:28
DX: T78.40XA Allergy, unspecified, initial encounter (principal); Z91.018 Allergy to other foods; E11.8 Type 2 diabetes mellitus with unspecified complications; Z90.49 Acquired absence of other specified parts of digestive tract
CPT/HCPCS: 96372; 99282; J1100; J1200

== ENCOUNTER 2021-04-18 19:56 | Emergency (ER) | payer BC ==
[2021-04-18] MEDS ORDERED: FAMOTIDINE 20 MG TAB PO ONE (21:25)
[2021-04-18] MEDS ORDERED: hydrOXYzine PAMOATE 25 MG CAP PO ONE (21:25)
[2021-04-18] MEDS ORDERED: methylPREDNISolone Sod Succinate 125 MG/2 ML INJ IM ONE (21:25)
--- NOTE | 2021-04-18 21:30 | Emergency Department Report ---
ED Allergic Reaction HPI - General Chief complaint: Skin Rash Stated complaint: ALLERGIC REACTION Source: patient Mode of arrival: Ambulatory Limitations: No Limitations - History of Present Illness Initial Comments: Patient is a 45-year-old -[place] female with a history of type 2 diabetes and morbid obesity who presented to the ED with complaint of acute onset persistent intermittent diffuse itchy erythematous urticarial rashes for the last 3 weeks. Patient states that she has previously been evaluated and treated for the same in the ED but that the medications have not been able to resolve her symptoms. Patient states that the etiology of her symptoms are unknown as nothing in her life has changed in the last 3 months. Patient denies swollen lips or tongue, dysphagia, dysphonia, hoarseness, chest pain or shortness of breath, cough, wheezing, nausea, vomiting, facial swelling, diarrhea or abdominal pain, fever and chills. MD Complaint: allergic reaction, hives, other (Diffuse itchy erythematous maculopapular urticarial rashes) -: Sudden, week(s) (3) Exposure: unknown Symptoms: rash, itching. denies: facial swelling, lip swelling, difficulty swallowing, difficulty breathing, orolingual swelling, hoarseness, syncopy, dizziness, nausea, vomiting, other Severity: severe Treatment Prior to Arrival: benadryl, steroids Previous Allergy History: none - Related Data Home Medications Medication Instructions Recorded Confirmed Last Taken Levothyroxine [Synthroid] 125 mcg PO QAM 08/23/15 08/23/15 08/22/15 metFORMIN [Glucophage] 500 mg PO BID 08/23/15 08/23/15 08/23/15 Previous Rx's Medication Instructions Recorded Last Taken Type DOXYCYCLINE Hyclate [Vibramycin] 100 mg PO Q12HR #28 capsule 08/24/15 Unknown Rx Ketorolac [Toradol] 10 mg PO Q6H PRN #20 tablet 08/24/15 Unknown Rx Ondansetron [Zofran Odt] 4 mg PO QID PRN #20 tab.rapdis 08/24/15 Unknown Rx Meclizine [Antivert] 12.5 mg PO BID PRN #10 tablet 04/30/19 Unknown Rx predniSONE [Deltasone] 50 mg PO QDAY #5 tab 04/22/20 Unknown Rx Ondansetron [Zofran ODT TAB] 4 mg PO Q8HR PRN #10 tab.rapdis 12/21/20 Unknown Rx cephALEXin [Keflex] 500 mg PO BID 7 Days #14 capsule 12/21/20 Unknown Rx traMADoL [Ultram 50 MG tab] 50 mg PO Q6HR PRN #12 tablet 12/21/20 Unknown Rx Cetirizine HCl 10 mg PO QDAY #30 tablet 03/18/21 Unknown Rx EPINEPHrine [Epipen 2-Martin] 0.3 mg IM ONCE PRN #0.3 ml 03/18/21 Unknown Rx predniSONE [Deltasone] 20 mg PO QDAY 5 Days #5 tab 03/18/21 Unknown Rx Famotidine [Pepcid] 40 mg PO DAILY #14 tablet 04/05/21 Unknown Rx hydrOXYzine HCL [Atarax] 25 mg PO Q6HR PRN #20 tablet 04/05/21 Unknown Rx predniSONE [Deltasone] 50 mg PO QDAY #5 tab 04/05/21 Unknown Rx Famotidine [Pepcid] 40 mg PO DAILY #60 tablet 04/18/21 Unknown Rx hydrOXYzine PAMOATE [Vistaril] 50 mg PO Q6HR PRN #60 capsule 04/18/21 Unknown Rx predniSONE [Deltasone] 60 mg PO QDAY #15 tab 04/18/21 Unknown Rx Allergies Allergy/AdvReac Type Severity Reaction Status Date / Time ian Allergy Swelling Verified 12/21/20 18:31 ED Review of Systems ROS: Stated complaint: ALLERGIC REACTION Other details as noted in HPI Constitutional: denies: chills, fever Eyes: denies: eye pain, eye discharge, vision change ENT: denies: ear pain, throat pain Respiratory: denies: cough, shortness of breath, wheezing Cardiovascular: denies: chest pain, palpitations Endocrine: no symptoms reported Gastrointestinal: denies: abdominal pain, nausea, diarrhea Genitourinary: denies: urgency, dysuria, discharge Musculoskeletal: denies: back pain, joint swelling, arthralgia Skin: rash (Diffuse itchy erythematous urticarial maculopapular rash), change in color, pruritus. denies: lesions Neurological: denies: headache, weakness, paresthesias Psychiatric: denies: anxiety, depression Hematological/Lymphatic: denies: easy bleeding, easy bruising ED Past Medical Hx - Past Medical History Hx Diabetes: Yes (type II) Additional medical history: HYPoTHYROID/ LOW IRON. VITILIGO - Surgical History Past Surgical History?: No Hx Cholecystectomy: Yes Additional Surgical History: corneal transplant x 2 recent, csection x 2 tubal ligation - Social History Smoking Status: Never Smoker Substance Use Type: None - Medications Home Medications: Home Medications Medication Instructions Recorded Confirmed Last Taken Type Levothyroxine [Synthroid] 125 mcg PO QAM 08/23/15 08/23/15 08/22/15 History metFORMIN [Glucophage] 500 mg PO BID 08/23/15 08/23/15 08/23/15 History DOXYCYCLINE Hyclate [Vibramycin] 100 mg PO Q12HR #28 capsule 08/24/15 Unknown Rx Ketorolac [Toradol] 10 mg PO Q6H PRN #20 tablet 08/24/15 Unknown Rx Ondansetron [Zofran Odt] 4 mg PO QID PRN #20 tab.rapdis 08/24/15 Unknown Rx Meclizine [Antivert] 12.5 mg PO BID PRN #10 tablet 04/30/19 Unknown Rx predniSONE [Deltasone] 50 mg PO QDAY #5 tab 04/22/20 Unknown Rx Ondansetron [Zofran ODT TAB] 4 mg PO Q8HR PRN #10 tab.rapdis 12/21/20 Unknown Rx cephALEXin [Keflex] 500 mg PO BID 7 Days #14 capsule 12/21/20 Unknown Rx traMADoL [Ultram 50 MG tab] 50 mg PO Q6HR PRN #12 tablet 12/21/20 Unknown Rx Cetirizine HCl 10 mg PO QDAY #30 tablet 03/18/21 Unknown Rx EPINEPHrine [Epipen 2-Martin] 0.3 mg IM ONCE PRN #0.3 ml 03/18/21 Unknown Rx predniSONE [Deltasone] 20 mg PO QDAY 5 Days #5 tab 03/18/21 Unknown Rx Famotidine [Pepcid] 40 mg PO DAILY #14 tablet 04/05/21 Unknown Rx hydrOXYzine HCL [Atarax] 25 mg PO Q6HR PRN #20 tablet 04/05/21 Unknown Rx predniSONE [Deltasone] 50 mg PO QDAY #5 tab 04/05/21 Unknown Rx Famotidine [Pepcid] 40 mg PO DAILY #60 tablet 04/18/21 Unknown Rx hydrOXYzine PAMOATE [Vistaril] 50 mg PO Q6HR PRN #60 capsule 04/18/21 Unknown Rx predniSONE [Deltasone] 60 mg PO QDAY #15 tab 04/18/21 Unknown Rx ED Physical Exam - General Limitations: No Limitations General appearance: alert, in no apparent distress - Head Head exam: Present: atraumatic, normocephalic, normal inspection - Eye Eye exam: Present: normal appearance, PERRL, EOMI Pupils: Present: normal accommodation - ENT ENT exam: Present: normal exam, normal orophraynx, mucous membranes moist, TM's normal bilaterally, normal external ear exam - Neck Neck exam: Present: normal inspection, full ROM - Respiratory Respiratory exam: Present: normal lung sounds bilaterally. Absent: respiratory distress, wheezes, rales, stridor, chest wall tenderness, accessory muscle use, decreased breath sounds, prolonged expiratory - Cardiovascular Cardiovascular Exam: Present: regular rate, normal rhythm, normal heart sounds. Absent: systolic murmur, diastolic murmur, rubs, gallop - GI/Abdominal GI/Abdominal exam: Present: soft, normal bowel sounds. Absent: tenderness, guarding, rebound, hyperactive bowel sounds, hypoactive bowel sounds, organomegaly, mass - Extremities Exam Extremities exam: Present: normal inspection, full ROM, normal capillary refill - Back Exam Back exam: Present: normal inspection, full ROM. Absent: tenderness, CVA tenderness (R), CVA tenderness (L), muscle spasm, paraspinal tenderness, vertebral tenderness - Neurological Exam Neurological exam: Present: alert, oriented X3, CN II-XII intact, normal gait, reflexes normal - Psychiatric Psychiatric exam: Present: normal affect, normal mood - Skin Skin exam: Present: warm, dry, intact, normal color, rash (Diffuse erythematous maculopapular urticarial rashes), erythema, urticaria ED Course Vital Signs 04/18/21 19:56 Temperature 98.9 F Pulse Rate 89 Respiratory 18 Rate Blood Pressure 151/54 [Right] O2 Sat by Pulse 100 Oximetry ED Medical Decision Making - Medical Decision Making This is a 45-year-old -[place] female with a history of type 2 diabetes and morbid obesity who presented to the ED with complaint of acute onset persistent intermittent diffuse itchy erythematous urticarial rashes for the last 3 weeks. Patient states that she has previously been evaluated and treated for the same in the ED but that the medications have not been able to resolve her symptoms. Patient states that the etiology of her symptoms are unknown as nothing in her life has changed in the last 3 months. In the ED, patient is alert and oriented x3 and is not in any distress. Patient is hemodynamically stable. Patient was treated in the ED for suspected acute allergic reaction to unknown substance, with Solu-Medrol 125 mg intramuscular injection, Pepcid 40 mg p.o. x1 and Vistaril 50 mg p.o. x1. Patient was therefore discharged home on medications and advised to follow-up with her primary care physician in 5 to 7 days for reevaluation. Patient was advised return to the ED immediately if symptoms get worse. - Differential Diagnosis Urticaria; allergic reaction; anaphylaxis; dermatitis Critical care attestation.: If time is entered above; I have spent that time in minutes in the direct care of this critically ill patient, excluding procedure time. ED Disposition Clinical Impression: Acute urticaria, Itching with irritation Acute allergic reaction Qualifiers: Encounter type: subsequent encounter Qualified Code(s): T78.40XD - Allergy, unspecified, subsequent encounter Disposition: 01 HOME / SELF CARE / HOMELESS Is pt being admited?: No Does the pt Need Aspirin: No Condition: Stable Instructions: Allergies, Adult, [id number], Hives, [id number], Rash, Adult, [id number] Additional Instructions: Take medication with food, drink plenty of fluids and follow-up with your primary care physician in 7 to 10 days for reevaluation. Return to the ED immediately if symptoms get worse. Prescriptions: predniSONE [Deltasone] 60 mg PO QDAY #15 tab Famotidine [Pepcid] 40 mg PO DAILY #60 tablet hydrOXYzine PAMOATE [Vistaril] 50 mg PO Q6HR PRN #60 capsule PRN Reason: Itching Referrals: [facility] [Provider Group] - 3-5 Days Time of Disposition: 21:30 Print Language: ARMENIAN
[2021-04-18 22:39] VITALS: BP 140/90
== END 2021-04-18 20:00 | disposition home or self-care (01) ==
LOC: ED 19:56
DX: L50.9 Urticaria, unspecified (principal); L29.9 Pruritus, unspecified; T78.40XA Allergy, unspecified, initial encounter; X58.XXXA Exposure to other specified factors, initial encounter; E11.9 Type 2 diabetes mellitus without complications; Z90.49 Acquired absence of other specified parts of digestive tract; Z91.018 Allergy to other foods
CPT/HCPCS: 96372; 99282; J2930; Q0177; J3490